=== PATIENT | male | born 1945 | race African-American/Black ===

== ENCOUNTER 2019-09-17 11:55 | Inpatient (IN) | payer OTHER, MEDICAID ==
[~2019-09-17] VITALS: Ht 165.1 cm; Wt 65.8 kg
[2019-09-17 14:26] LABS: BASOPHILS % 1.1 % (0.0-2.0); EOSINOPHILS % 1.4 % (0.0-5.0); HEMATOCRIT. 32.6 % (42.0-52.0); HEMOGLOBIN. 10.8 g/dL (14.0-18.0); LYMPHOCYTES % 18.9 % (20.0-50.0); MEAN CORPUSCULAR HEMOGLOBIN 29.4 pg (28.0-32.0); MEAN CORPUSCULAR VOLUME 88.7 fL (80.0-94.0); MONOCYTES % 12.2 % (2.0-8.0); NEUTROPHILS % 66.4 % (40.0-76.0); PLATELET 215 x1000/uL (130-400); RED BLOOD CELL COUNT 3.68 mill/uL (4.7-6.1); RED CELL DISTRIBUTION WIDTH 14.1 % (11.6-14.6)
[2019-09-17 14:34] LABS: CHLORIDE 104 mEq/L (98-107)
[2019-09-17] MEDS ORDERED: HYDROCODONE/ACETAMINOPHEN 5/325MG TABLET PO ONE (15:30)
[2019-09-17] MEDS ORDERED: NITROGLYCERIN 0.4MG TABLET SL SL ONE (18:15)
[2019-09-17] MEDS ORDERED: ACETAMINOPHEN 325MG TABLET PO PRN (18:15)
[2019-09-17] MEDS ORDERED: ONDANSETRON HCL 4MG/2ML INJ IV PRN (18:15)
[2019-09-17] MEDS ORDERED: MORPHINE SULFATE 2 MG/ML CPJ (NOT FOR IM USE) IV PRN (18:15)
[2019-09-17] MEDS ORDERED: NITROGLYCERIN 0.4MG TABLET SL SL PRN (19:45)
[2019-09-17 21:30] VITALS: BP 119/69
[2019-09-17] MEDS: HEPARIN 5000 UNITS/ML VIAL SUBCUT SCH (23:18)
[2019-09-18] VITALS: BP 127/74
[2019-09-18] MEDS ORDERED: TAMS-11 MT (00:01)
[2019-09-18] MEDS ORDERED: THIA50TA11 MT (00:01)
[2019-09-18] MEDS ORDERED: ALBU90AE INH (00:01)
[2019-09-18] MEDS ORDERED: AMLO10TA80 MT (00:01)
[2019-09-18] MEDS ORDERED: HYDR-4009 MT (00:01)
[2019-09-18] MEDS ORDERED: METO-396 MT (00:01)
[2019-09-18] MEDS ORDERED: FURO-151 MT (00:01)
[2019-09-18] MEDS ORDERED: GABA-531 MT (00:01)
[2019-09-18] MEDS ORDERED: ATOR40TA70 MT (00:01)
[2019-09-18] MEDS ORDERED: HYDR25TA MT (00:01)
[2019-09-18] MEDS ORDERED: DOXA4TAB2 MT (00:01)
[2019-09-18] MEDS ORDERED: FLUT1BLS INH (00:01)
[2019-09-18] MEDS ORDERED: ASPI-1497 MT (00:01)
[2019-09-18] MEDS ORDERED: FOLI0.4T2 MT (00:01)
[2019-09-18] MEDS: HYDROCODONE/ACETAMINOPHEN 10/325MG TABLET PO PRN ×3 (01:16→19:54)
[2019-09-18] MEDS: GABAPENTIN 300MG CAPSULE PO SCH ×4 (06:00→21:27)
[2019-09-18 08:15] VITALS: BP 105/52
[2019-09-18] MEDS ORDERED: METOPROLOL TARTRATE 25MG TABLET PO SCH (09:00)
[2019-09-18] MEDS: ASPIRIN 81MG EC TABLET PO SCH (09:16)
[2019-09-18] MEDS: THIAMINE HCL 100MG TABLET PO SCH (09:16)
[2019-09-18] MEDS: FUROSEMIDE 40MG TABLET PO SCH (09:17)
[2019-09-18] MEDS: TAMSULOSIN HCL 0.4MG SR CAPSULE PO SCH (09:17)
[2019-09-18] MEDS: FOLIC ACID 1MG TABLET PO SCH (09:17)
[2019-09-18] MEDS: AMLODIPINE 10MG TABLET PO SCH (09:17)
[2019-09-18] MEDS: HYDROCHLOROTHIAZIDE 25MG TABLET PO SCH (09:18)
[2019-09-18] MEDS: HEPARIN 5000 UNITS/ML VIAL SUBCUT SCH ×2 (09:19→21:19)
[2019-09-18 09:37] LABS: CHLORIDE 105 mEq/L (98-107)
[2019-09-18 10:10] LABS: BASOPHILS % 0.9 % (0.0-2.0); EOSINOPHILS % 3.1 % (0.0-5.0); HEMATOCRIT. 30.6 % (42.0-52.0); HEMOGLOBIN. 10.2 g/dL (14.0-18.0); LYMPHOCYTES % 23.9 % (20.0-50.0); MEAN CORPUSCULAR HEMOGLOBIN 29.3 pg (28.0-32.0); MEAN CORPUSCULAR VOLUME 88.3 fL (80.0-94.0); MONOCYTES % 14.4 % (2.0-8.0); NEUTROPHILS % 57.7 % (40.0-76.0); PLATELET 198 x1000/uL (130-400); RED BLOOD CELL COUNT 3.46 mill/uL (4.7-6.1); RED CELL DISTRIBUTION WIDTH 13.9 % (11.6-14.6)
[2019-09-18 10:15] LABS: HDL CHOLESTEROL 70 mg/dL (40-59); LDL CHOLESTEROL 50 mg/dL (5-100)
[2019-09-18] MEDS: FLUTICASONE/VILANTEROL 200-25 BLST.W.DEV ORI SCH (10:30)
[2019-09-18 12:26] VITALS: BP 108/66
[2019-09-18] MEDS ORDERED: POTASSIUM CHLORIDE 20MEQ/PACKET PO NR (13:30)
[2019-09-18 13:39] LABS: CREATINE KINASE 252 IU/L (39-308)
[2019-09-18] MEDS ORDERED: MAGNESIUM 2 G PREMIX 50 ML IV NR (14:30)
[2019-09-18 16:18] VITALS: BP 142/83
[2019-09-18 16:23] VITALS: BP 104/56
[2019-09-18 20:00] VITALS: BP 109/61
[2019-09-18] MEDS ORDERED: ATORVASTATIN CALCIUM 40MG TABLET PO SCH (21:00)
[2019-09-18] MEDS: DOXAZOSIN MESYLATE 4MG TABLET PO SCH (21:00)
[2019-09-18] MEDS: ATORVASTATIN CALCIUM 40MG TABLET PO SCH (21:18)
[2019-09-19] VITALS: BP 114/61
[2019-09-19] MEDS: HYDROCODONE/ACETAMINOPHEN 10/325MG TABLET PO PRN ×3 (02:27→18:31)
[2019-09-19 04:00] VITALS: BP 114/66
[2019-09-19] MEDS: GABAPENTIN 300MG CAPSULE PO SCH ×4 (05:34→22:00)
[2019-09-19 06:06] LABS: BASOPHILS % 1.2 % (0.0-2.0); EOSINOPHILS % 4.5 % (0.0-5.0); HEMATOCRIT. 34.3 % (42.0-52.0); HEMOGLOBIN. 11.3 g/dL (14.0-18.0); MEAN CORPUSCULAR HEMOGLOBIN 29.2 pg (28.0-32.0); MEAN CORPUSCULAR VOLUME 88.8 fL (80.0-94.0); MEAN PLATELET VOLUME 8.8 fl (7.4-10.4); MONOCYTES % 14.2 % (2.0-8.0); NEUTROPHILS % 51.1 % (40.0-76.0); PLATELET 207 x1000/uL (130-400); RED BLOOD CELL COUNT 3.87 mill/uL (4.7-6.1)
[2019-09-19 06:18] LABS: CHLORIDE 103 mEq/L (98-107)
[2019-09-19 08:00] VITALS: BP 122/65
[2019-09-19] MEDS: ASPIRIN 81MG EC TABLET PO SCH (09:06)
[2019-09-19] MEDS: HEPARIN 5000 UNITS/ML VIAL SUBCUT SCH ×2 (09:06→21:00)
[2019-09-19] MEDS: FUROSEMIDE 40MG TABLET PO SCH (09:07)
[2019-09-19] MEDS: AMLODIPINE 10MG TABLET PO SCH (09:07)
[2019-09-19] MEDS: TAMSULOSIN HCL 0.4MG SR CAPSULE PO SCH (09:07)
[2019-09-19] MEDS: THIAMINE HCL 100MG TABLET PO SCH (09:10)
[2019-09-19] MEDS: HYDROCHLOROTHIAZIDE 25MG TABLET PO SCH (09:10)
[2019-09-19] MEDS: FOLIC ACID 1MG TABLET PO SCH (09:10)
[2019-09-19] MEDS: MAGNESIUM OXIDE 400MG TABLET PO SCH ×2 (11:19→18:01)
[2019-09-19 12:00] VITALS: BP 129/63
[2019-09-19 16:00] VITALS: BP 108/59
[2019-09-19 20:00] VITALS: BP 118/77
[2019-09-19] MEDS: FLUTICASONE/VILANTEROL 200-25 BLST.W.DEV ORI SCH (21:00)
[2019-09-19] MEDS: DOXAZOSIN MESYLATE 4MG TABLET PO SCH (21:08)
[2019-09-19] MEDS: ATORVASTATIN CALCIUM 40MG TABLET PO SCH (21:08)
[2019-09-20] VITALS: BP 103/61
[2019-09-20] MEDS: HYDROCODONE/ACETAMINOPHEN 10/325MG TABLET PO PRN ×3 (02:04→17:57)
[2019-09-20 04:00] VITALS: BP 100/58
[2019-09-20] MEDS: GABAPENTIN 300MG CAPSULE PO SCH ×3 (05:44→22:13)
[2019-09-20 07:05] LABS: CLARITY URINE CLEAR (CLEAR); COLOR URINE YELLOW (YELLOW); KETONES URINE NEGATIVE (NEGATIVE); LEUKOCYTE ESTERASE URINE NEGATIVE (NEGATIVE); NITRITE URINE NEGATIVE (NEGATIVE); OCCULT BLOOD URINE NEGATIVE (NEGATIVE); PH URINE 6.5 (4.5-8.0); PROTEIN URINE NEGATIVE (NEGATIVE); SPECIFIC GRAVITY URINE 1.009 (1.005-1.030); UROBILINOGEN URINE 0.2 E.U./dL (0.2-1.0)
[2019-09-20 08:00] VITALS: BP 116/66
[2019-09-20] MEDS: TAMSULOSIN HCL 0.4MG SR CAPSULE PO SCH (08:39)
[2019-09-20] MEDS: FOLIC ACID 1MG TABLET PO SCH (08:39)
[2019-09-20] MEDS: AMLODIPINE 10MG TABLET PO SCH (08:39)
[2019-09-20] MEDS: FUROSEMIDE 40MG TABLET PO SCH (08:39)
[2019-09-20] MEDS: MAGNESIUM OXIDE 400MG TABLET PO SCH ×2 (08:40→17:56)
[2019-09-20] MEDS: THIAMINE HCL 100MG TABLET PO SCH (08:40)
[2019-09-20] MEDS: ASPIRIN 81MG EC TABLET PO SCH (08:40)
[2019-09-20] MEDS: HEPARIN 5000 UNITS/ML VIAL SUBCUT SCH ×2 (08:40→22:14)
[2019-09-20] MEDS: HYDROCHLOROTHIAZIDE 25MG TABLET PO SCH (08:55)
[2019-09-20 09:09] LABS: COMPLEMENT C3 109 mg/dL (82-167)
[2019-09-20 12:00] VITALS: BP 107/68
[2019-09-20] MEDS ORDERED: BISACODYL 10MG SUPP PR NR (12:45)
[2019-09-20] MEDS ORDERED: NA PHOS,M-B/NA PHOS,DI-BA ENEMA 118ML PR NR (12:45)
[2019-09-20] MEDS ORDERED: MAGNESIUM HYDROXIDE 400MG/5ML 30ML UDC PO NR (12:45)
[2019-09-20] MEDS: DOCUSATE SODIUM 250MG CAPSULE PO SCH (12:59)
[2019-09-20 13:06] LABS: ANTI-NUCLEAR ANTIBODIES DIRECT Negative (Negative)
[2019-09-20 16:00] VITALS: BP 115/70
[2019-09-20 20:00] VITALS: BP 108/69
[2019-09-20] MEDS: FLUTICASONE/VILANTEROL 200-25 BLST.W.DEV ORI SCH (22:08)
[2019-09-20] MEDS: DOXAZOSIN MESYLATE 4MG TABLET PO SCH (22:10)
[2019-09-20] MEDS: ATORVASTATIN CALCIUM 40MG TABLET PO SCH (22:11)
[2019-09-20] MEDS: SENNOSIDES/DOCUSATE SOD 8.6/50MG TABLET PO SCH (22:14)
[2019-09-21] VITALS: BP 120/59
[2019-09-21 04:00] VITALS: BP 122/61
[2019-09-21] MEDS: GABAPENTIN 300MG CAPSULE PO SCH ×3 (06:05→21:17)
[2019-09-21] MEDS: HYDROCODONE/ACETAMINOPHEN 10/325MG TABLET PO PRN (06:05)
[2019-09-21 07:19] LABS: BASOPHILS % 0.9 % (0.0-2.0); EOSINOPHILS % 3.5 % (0.0-5.0); HEMATOCRIT. 33.8 % (42.0-52.0); LYMPHOCYTES % 29.8 % (20.0-50.0); MEAN CORPUSCULAR HEMOGLOBIN 28.8 pg (28.0-32.0); MEAN CORPUSCULAR VOLUME 88.4 fL (80.0-94.0); MONOCYTES % 13.4 % (2.0-8.0); NEUTROPHILS % 52.4 % (40.0-76.0); PLATELET 202 x1000/uL (130-400); RED BLOOD CELL COUNT 3.83 mill/uL (4.7-6.1); RED CELL DISTRIBUTION WIDTH 13.6 % (11.6-14.6)
[2019-09-21 08:00] VITALS: BP 119/60
[2019-09-21] MEDS: THIAMINE HCL 100MG TABLET PO SCH (09:01)
[2019-09-21] MEDS: TAMSULOSIN HCL 0.4MG SR CAPSULE PO SCH (09:01)
[2019-09-21] MEDS: MAGNESIUM OXIDE 400MG TABLET PO SCH ×2 (09:01→18:03)
[2019-09-21] MEDS: HYDROCHLOROTHIAZIDE 25MG TABLET PO SCH (09:01)
[2019-09-21] MEDS: FOLIC ACID 1MG TABLET PO SCH (09:01)
[2019-09-21] MEDS: DOCUSATE SODIUM 250MG CAPSULE PO SCH (09:01)
[2019-09-21] MEDS: AMLODIPINE 10MG TABLET PO SCH (09:01)
[2019-09-21] MEDS: FUROSEMIDE 40MG TABLET PO SCH (09:01)
[2019-09-21] MEDS: HEPARIN 5000 UNITS/ML VIAL SUBCUT SCH ×2 (09:02→21:17)
[2019-09-21 12:00] VITALS: BP 106/62
[2019-09-21] MEDS: ASPIRIN 81MG EC TABLET PO SCH (13:54)
[2019-09-21 20:00] VITALS: BP 137/53
[2019-09-21] MEDS: ATORVASTATIN CALCIUM 40MG TABLET PO SCH (21:17)
[2019-09-21] MEDS: DOXAZOSIN MESYLATE 4MG TABLET PO SCH (21:17)
[2019-09-21] MEDS: SENNOSIDES/DOCUSATE SOD 8.6/50MG TABLET PO SCH (21:18)
[2019-09-21] MEDS: FLUTICASONE/VILANTEROL 200-25 BLST.W.DEV ORI SCH (21:19)
[2019-09-22] VITALS: BP 144/75
[2019-09-22] MEDS: HYDROCODONE/ACETAMINOPHEN 10/325MG TABLET PO PRN ×3 (00:38→21:33)
[2019-09-22 04:00] VITALS: BP 120/57
[2019-09-22] MEDS: GABAPENTIN 300MG CAPSULE PO SCH ×5 (05:06→21:44)
[2019-09-22 08:00] VITALS: BP 139/58
[2019-09-22] MEDS: MAGNESIUM OXIDE 400MG TABLET PO SCH ×2 (10:13→16:50)
[2019-09-22] MEDS: FUROSEMIDE 40MG TABLET PO SCH (10:13)
[2019-09-22] MEDS: HYDROCHLOROTHIAZIDE 25MG TABLET PO SCH (10:13)
[2019-09-22] MEDS: THIAMINE HCL 100MG TABLET PO SCH (10:13)
[2019-09-22] MEDS: FOLIC ACID 1MG TABLET PO SCH (10:13)
[2019-09-22] MEDS: DOCUSATE SODIUM 250MG CAPSULE PO SCH (10:13)
[2019-09-22] MEDS: HEPARIN 5000 UNITS/ML VIAL SUBCUT SCH ×2 (10:13→21:31)
[2019-09-22] MEDS: TAMSULOSIN HCL 0.4MG SR CAPSULE PO SCH (10:14)
[2019-09-22] MEDS: AMLODIPINE 10MG TABLET PO SCH (10:14)
[2019-09-22] MEDS: ASPIRIN 81MG EC TABLET PO SCH (10:19)
[2019-09-22 20:33] VITALS: BP 131/78
[2019-09-22] MEDS: FLUTICASONE/VILANTEROL 200-25 BLST.W.DEV ORI SCH (21:00)
[2019-09-22] MEDS: ATORVASTATIN CALCIUM 40MG TABLET PO SCH (21:27)
[2019-09-22] MEDS: SENNOSIDES/DOCUSATE SOD 8.6/50MG TABLET PO SCH (21:28)
[2019-09-22] MEDS: DOXAZOSIN MESYLATE 4MG TABLET PO SCH (21:28)
[2019-09-23 00:40] VITALS: BP 120/70
[2019-09-23] MEDS ORDERED: HYDROCODONE/ACETAMINOPHEN 10/325MG TABLET PO PRN (01:45)
[2019-09-23 04:20] VITALS: BP 114/56
[2019-09-23] MEDS: GABAPENTIN 300MG CAPSULE PO SCH ×3 (06:00→21:45)
[2019-09-23 07:01] LABS: HEMATOCRIT. 32.4 % (42.0-52.0); HEMOGLOBIN. 10.8 g/dL (14.0-18.0); MEAN CORPUSCULAR HEMOGLOBIN 29.5 pg (28.0-32.0); MEAN CORPUSCULAR VOLUME 88.6 fL (80.0-94.0); PLATELET 180 x1000/uL (130-400); RED BLOOD CELL COUNT 3.65 mill/uL (4.7-6.1); RED CELL DISTRIBUTION WIDTH 13.8 % (11.6-14.6)
[2019-09-23 08:06] VITALS: BP 124/63
[2019-09-23] MEDS: TAMSULOSIN HCL 0.4MG SR CAPSULE PO SCH (09:06)
[2019-09-23] MEDS: FOLIC ACID 1MG TABLET PO SCH (09:06)
[2019-09-23] MEDS: DOCUSATE SODIUM 250MG CAPSULE PO SCH (09:06)
[2019-09-23] MEDS: HYDROCHLOROTHIAZIDE 25MG TABLET PO SCH (09:06)
[2019-09-23] MEDS: AMLODIPINE 10MG TABLET PO SCH (09:06)
[2019-09-23] MEDS: THIAMINE HCL 100MG TABLET PO SCH (09:06)
[2019-09-23] MEDS: FUROSEMIDE 40MG TABLET PO SCH (09:06)
[2019-09-23] MEDS: MAGNESIUM OXIDE 400MG TABLET PO SCH ×2 (09:06→17:49)
[2019-09-23] MEDS: HEPARIN 5000 UNITS/ML VIAL SUBCUT SCH ×2 (09:07→21:44)
[2019-09-23] MEDS: ASPIRIN 81MG EC TABLET PO SCH (11:19)
[2019-09-23 11:56] VITALS: BP 119/53
[2019-09-23 15:11] LABS: PLATELET ESTIMATE NORMAL
[2019-09-23 15:59] VITALS: BP 100/56
[2019-09-23] MEDS: TRAMADOL 50MG TABLET PO PRN (19:01)
[2019-09-23 20:00] VITALS: BP 128/71
[2019-09-23] MEDS: FLUTICASONE/VILANTEROL 200-25 BLST.W.DEV ORI SCH (21:00)
[2019-09-23] MEDS: SENNOSIDES/DOCUSATE SOD 8.6/50MG TABLET PO SCH (21:44)
[2019-09-23] MEDS: ATORVASTATIN CALCIUM 40MG TABLET PO SCH (21:44)
[2019-09-23] MEDS: DOXAZOSIN MESYLATE 4MG TABLET PO SCH (21:44)
[2019-09-24] VITALS: BP 137/70
[2019-09-24] MEDS: TRAMADOL 50MG TABLET PO PRN ×3 (01:42→16:18)
[2019-09-24] MEDS: GABAPENTIN 300MG CAPSULE PO SCH ×2 (06:00→14:00)
[2019-09-24 06:59] LABS: HEMATOCRIT. 31.2 % (42.0-52.0); HEMOGLOBIN. 10.4 g/dL (14.0-18.0); MEAN CORPUSCULAR HEMOGLOBIN 29.5 pg (28.0-32.0); MEAN CORPUSCULAR VOLUME 88.4 fL (80.0-94.0); MEAN PLATELET VOLUME 8.8 fl (7.4-10.4); PLATELET 181 x1000/uL (130-400); RED BLOOD CELL COUNT 3.53 mill/uL (4.7-6.1); RED CELL DISTRIBUTION WIDTH 13.6 % (11.6-14.6)
[2019-09-24] MEDS: AMLODIPINE 10MG TABLET PO SCH (09:00)
[2019-09-24] MEDS: MAGNESIUM OXIDE 400MG TABLET PO SCH ×2 (09:30→17:22)
[2019-09-24] MEDS: DOCUSATE SODIUM 250MG CAPSULE PO SCH (09:30)
[2019-09-24] MEDS: FUROSEMIDE 40MG TABLET PO SCH (09:31)
[2019-09-24] MEDS: ASPIRIN 81MG EC TABLET PO SCH (09:31)
[2019-09-24] MEDS: FOLIC ACID 1MG TABLET PO SCH (09:31)
[2019-09-24] MEDS: HYDROCHLOROTHIAZIDE 25MG TABLET PO SCH (09:31)
[2019-09-24] MEDS: THIAMINE HCL 100MG TABLET PO SCH (09:31)
[2019-09-24] MEDS: TAMSULOSIN HCL 0.4MG SR CAPSULE PO SCH (09:32)
[2019-09-24] MEDS: HEPARIN 5000 UNITS/ML VIAL SUBCUT SCH (09:32)
[2019-09-24 12:00] VITALS: BP 120/58
[2019-09-24 13:20] LABS: PLATELET ESTIMATE NORMAL
[2019-09-24 15:54] VITALS: BP 120/58
[2019-09-24 16:00] VITALS: BP 116/64
[2019-09-24 16:18] VITALS: BP 120/58
[2019-09-25] MEDS ORDERED: AMLODIPINE 5MG TABLET PO SCH (09:00)
== END 2019-09-24 19:54 | DRG 683 ==
LOC: EDBEDREQ 12:26 → ER 12:39 → EDBEDREQ 18:11 → ENRESERV 19:53 → 6WST 21:16
PROVIDERS: ADMIT Family Medicine Adult Medicine; ATTEND Family Medicine Adult Medicine
DX: N17.9 Acute kidney failure, unspecified (principal); I13.0 Hypertensive heart and chronic kidney disease with heart failure and stage 1 through stage 4 chronic kidney disease, or unspecified chronic kidney disease; N18.9 Chronic kidney disease, unspecified; D63.8 Anemia in other chronic diseases classified elsewhere; I44.0 Atrioventricular block, first degree; I25.10 Atherosclerotic heart disease of native coronary artery without angina pectoris; E83.42 Hypomagnesemia; N40.0 Benign prostatic hyperplasia without lower urinary tract symptoms; K76.9 Liver disease, unspecified; I50.9 Heart failure, unspecified; L50.9 Urticaria, unspecified; Z79.51 Long term (current) use of inhaled steroids; I25.2 Old myocardial infarction; Z86.73 Personal history of transient ischemic attack (TIA), and cerebral infarction without residual deficits; Z59.0 Homelessness; Z79.899 Other long term (current) drug therapy; Z88.0 Allergy status to penicillin; Z79.82 Long term (current) use of aspirin; Z87.891 Personal history of nicotine dependence
CPT/HCPCS: 36415; 71045; 76770; 80048; 80053; 80061; 81003; 82550; 83036; 83735; 83880; 84443; 84484; 85025; 86038; 86160; 93005; 93306; 96365; 97162; 97166; 99285; J1644; J3475

== ENCOUNTER 2020-02-16 17:38 | Inpatient (IN) | payer OTHER, MEDICAID ==
[~2020-02-16] VITALS: Ht 177.8 cm; Wt 75.0 kg
[~2020-02-16 17:38] MED LIST: ALBU90AE INH; AMLO10TA80 MT; ASPI-1497 MT; ATOR40TA70 MT; DOXA4TAB2 MT; FLUT1BLS INH; FOLI0.4T2 MT; FURO-151 MT; GABA-531 MT; HYDR-4009 MT; HYDR25TA MT; TAMS-11 MT; THIA50TA11 MT
[2020-02-16] MEDS ORDERED: HALOPERIDOL LACTATE 5MG/ML VIAL IM NR (18:30)
[2020-02-16 18:58] LABS: HEMATOCRIT. 37.1 % (42.0-52.0); HEMOGLOBIN. 12.4 g/dL (14.0-18.0); MEAN CORPUSCULAR HEMOGLOBIN 28.9 pg (28.0-32.0); MEAN CORPUSCULAR VOLUME 86.7 fL (80.0-94.0); MEAN PLATELET VOLUME 8.9 fl (7.4-10.4); PLATELET 257 x1000/uL (130-400); RED BLOOD CELL COUNT 4.27 mill/uL (4.7-6.1); RED CELL DISTRIBUTION WIDTH 15.5 % (11.6-14.6)
[2020-02-16 19:03] LABS: CHLORIDE 93 mEq/L (98-107)
[2020-02-16 19:06] LABS: INR 0.9; PROTHROMBIN TIME 10.2 sec (9.6-11.0)
[2020-02-16 19:29] LABS: CLARITY URINE CLEAR (CLEAR); COLOR URINE YELLOW (YELLOW); KETONES URINE NEGATIVE (NEGATIVE); LEUKOCYTE ESTERASE URINE 1+ (NEGATIVE); NITRITE URINE NEGATIVE (NEGATIVE); OCCULT BLOOD URINE TRACE (NEGATIVE); PH URINE 6.5 (4.5-8.0); PROTEIN URINE 1+ (NEGATIVE); SPECIFIC GRAVITY URINE 1.014 (1.005-1.030); UROBILINOGEN URINE 0.2 E.U./dL (0.2-1.0)
[2020-02-16] MEDS ORDERED: AZTREONAM 2 GM in DEXT 5% WATER 100 ML IV STA (19:31)
[2020-02-16 19:48] LABS: PLATELET ESTIMATE NORMAL
[2020-02-16] MEDS ORDERED: HALOPERIDOL LACTATE 5MG/ML VIAL IM ONE (20:45)
[2020-02-16 23:22] VITALS: BP 126/68
[2020-02-16] MEDS ORDERED: ACETAMINOPHEN 650MG SUPP PR PRN (23:45)
[2020-02-16] MEDS ORDERED: ACETAMINOPHEN 650MG/20.3ML UDC GT PRN ×2 (23:45)
[2020-02-16] MEDS ORDERED: MAGNESIUM/ALUMINUM HYDROXIDE/SIMETHICONE 30ML UDC PO PRN (23:45)
[2020-02-16] MEDS ORDERED: CEFTRIAXONE 1 G PREMIX 50 ML IV SCH (23:45)
[2020-02-16] MEDS ORDERED: DIPHENHYDRAMINE 50MG/ML VIAL IV PRN (23:45)
[2020-02-16] MEDS ORDERED: NA PHOS,M-B/NA PHOS,DI-BA ENEMA 118ML PR PRN (23:45)
[2020-02-16] MEDS ORDERED: CLONIDINE 0.1MG TABLET PO PRN (23:45)
[2020-02-16] MEDS ORDERED: ONDANSETRON HCL 4MG/2ML INJ IV PRN (23:45)
[2020-02-17] VITALS: BP 108/62
[2020-02-17] MEDS: ACETAMINOPHEN 650MG SUPP PR PRN ×2 (00:27→06:15)
[2020-02-17] MEDS ORDERED: SODIUM CHLORIDE 0.9% 1,000 ML IV SCH (00:30)
[2020-02-17] MEDS: SODIUM CHLORIDE 0.9% INJ 3ML FLUSH IVF SCH ×3 (05:19→21:23)
[2020-02-17 06:09] VITALS: BP 149/68
[2020-02-17 07:04] LABS: HEMATOCRIT. 37.2 % (42.0-52.0); HEMOGLOBIN. 12.5 g/dL (14.0-18.0); MEAN CORPUSCULAR HEMOGLOBIN 29.1 pg (28.0-32.0); MEAN CORPUSCULAR VOLUME 86.7 fL (80.0-94.0); MEAN PLATELET VOLUME 8.5 fl (7.4-10.4); PLATELET 264 x1000/uL (130-400); RED BLOOD CELL COUNT 4.29 mill/uL (4.7-6.1); RED CELL DISTRIBUTION WIDTH 15.4 % (11.6-14.6)
[2020-02-17 07:13] LABS: CHLORIDE 101 mEq/L (98-107)
[2020-02-17 07:25] LABS: LDL CHOLESTEROL 62 mg/dL (5-100)
[2020-02-17 07:26] LABS: HDL CHOLESTEROL 45 mg/dL (40-59)
[2020-02-17 08:00] VITALS: BP 148/84
[2020-02-17] MEDS: ENOXAPARIN 30MG/0.3ML SYR SUBCUT SCH (08:32)
[2020-02-17] MEDS ORDERED: POTASSIUM CHLORIDE INJ 40 MEQ in DEXT 5% WATER 250 ML IV SCH ×2 (09:00→13:00)
[2020-02-17] MEDS ORDERED: LEVOFLOXACIN 500MG PREMIX 100 ML IV NR (09:00)
[2020-02-17 11:20] LABS: PLATELET ESTIMATE NORMAL
[2020-02-17 12:00] VITALS: BP 149/82
[2020-02-17] MEDS ORDERED: DEXTROSE 50% WATER 50ML SYRINGE IV PRN (13:30)
[2020-02-17] MEDS: AZITHROMYCIN 250 MG TABLET PO SCH (13:58)
[2020-02-17] MEDS: CARVEDILOL 6.25 MG TABLET PO SCH ×2 (13:58→21:00)
[2020-02-17 16:00] VITALS: BP 129/75
[2020-02-17 16:02] LABS: *AMPHETAMINES SCREEN URINE NEGATIVE (NEGATIVE); *BARBITURATES SCREEN URINE NEGATIVE (NEGATIVE); *BENZODIAZEPINES SCREEN URINE NEGATIVE (NEGATIVE); *COCAINE SCREEN URINE NEGATIVE (NEGATIVE); METHADONE URINE SCREEN NEGATIVE (NEGATIVE); OPIATES URINE SCREEN PRESUMTIVE POSITIVE (NEGATIVE)
[2020-02-17 16:03] LABS: CANNABINOID URINE SCREEN NEGATIVE (NEGATIVE); PHENCYCLIDINE URINE SCREEN NEGATIVE (NEGATIVE)
[2020-02-17] MEDS: BLOOD SUGAR DIAGNOSTIC STRIP TEST SCH ×2 (16:58→21:21)
[2020-02-17] MEDS: INSULIN LISPRO 100 UNITS/ML SUBCUT SCH ×2 (17:51→21:00)
[2020-02-17] MEDS ORDERED: VANCOMYCIN 1 G PREMIX 200 ML IV NR (18:00)
[2020-02-17 20:00] VITALS: BP 146/85
[2020-02-17] MEDS: ATORVASTATIN CALCIUM 40MG TABLET PO SCH (20:59)
[2020-02-18] VITALS: BP 114/61
[2020-02-18 04:00] VITALS: BP 122/77
[2020-02-18] MEDS: SODIUM CHLORIDE 0.9% INJ 3ML FLUSH IVF SCH ×3 (06:14→21:31)
[2020-02-18] MEDS: VANCOMYCIN 750 MG PREMIX 150 ML IV SCH (06:16)
[2020-02-18] MEDS: BLOOD SUGAR DIAGNOSTIC STRIP TEST SCH ×4 (07:40→20:31)
[2020-02-18 08:00] VITALS: BP 115/72
[2020-02-18] MEDS: INSULIN LISPRO 100 UNITS/ML SUBCUT SCH ×4 (08:10→20:31)
[2020-02-18] MEDS: ASPIRIN 81MG TABLET PO SCH (08:51)
[2020-02-18] MEDS: LEVOFLOXACIN 250MG PREMIX 50 ML IV SCH (08:51)
[2020-02-18] MEDS: ENOXAPARIN 30MG/0.3ML SYR SUBCUT SCH (08:51)
[2020-02-18] MEDS: AZITHROMYCIN 250 MG TABLET PO SCH (08:51)
[2020-02-18] MEDS: CARVEDILOL 6.25 MG TABLET PO SCH ×2 (08:51→21:32)
[2020-02-18 12:00] VITALS: BP_SYST 101; BP_DIAS 61; BP_DIAS 98
[2020-02-18 13:51] LABS: HEMATOCRIT. 37.2 % (42.0-52.0); HEMOGLOBIN. 12.2 g/dL (14.0-18.0); MEAN CORPUSCULAR HEMOGLOBIN 29.3 pg (28.0-32.0); MEAN CORPUSCULAR VOLUME 89.6 fL (80.0-94.0); MEAN PLATELET VOLUME 8.6 fl (7.4-10.4); PLATELET 268 x1000/uL (130-400); RED BLOOD CELL COUNT 4.16 mill/uL (4.7-6.1)
[2020-02-18 14:13] LABS: CHLORIDE 109 mEq/L (98-107)
[2020-02-18 14:20] LABS: PHOSPHORUS 1.6 mg/dL (2.5-4.9)
[2020-02-18] MEDS ORDERED: HALOPERIDOL LACTATE 5MG/ML VIAL IM PRN (14:30)
[2020-02-18 16:00] VITALS: BP 125/71
[2020-02-18 18:29] LABS: PLATELET ESTIMATE NORMAL
[2020-02-18 20:00] VITALS: BP 133/76
[2020-02-18] MEDS: ATORVASTATIN CALCIUM 40MG TABLET PO SCH (21:31)
[2020-02-18] MEDS: GABAPENTIN 300MG CAPSULE PO SCH (21:31)
[2020-02-18] MEDS: HYDROCODONE/ACETAMINOPHEN 10/325MG TABLET PO PRN (21:33)
[2020-02-18 22:14] LABS: COVID-19 PCR RNA DETECTED
[2020-02-18 22:15] LABS: COVID-19 PCR RNA DETECTED
[2020-02-19] VITALS (7 sets, daily range): BP systolic 100–118; BP diastolic 51–69
[2020-02-19] MEDS: VANCOMYCIN 750 MG PREMIX 150 ML IV SCH (05:54)
[2020-02-19] MEDS: SODIUM CHLORIDE 0.9% INJ 3ML FLUSH IVF SCH ×3 (05:54→21:05)
[2020-02-19] MEDS: GABAPENTIN 300MG CAPSULE PO SCH ×3 (05:54→21:05)
[2020-02-19] MEDS: BLOOD SUGAR DIAGNOSTIC STRIP TEST SCH ×4 (06:53→21:04)
[2020-02-19 07:40] LABS: BASOPHILS % 0.1 % (0.0-2.0); HEMATOCRIT. 37.5 % (42.0-52.0); HEMOGLOBIN. 12.3 g/dL (14.0-18.0); LYMPHOCYTES % 7.6 % (20.0-50.0); MEAN CORPUSCULAR HEMOGLOBIN 29.5 pg (28.0-32.0); MEAN CORPUSCULAR VOLUME 90.2 fL (80.0-94.0); MEAN PLATELET VOLUME 8.2 fl (7.4-10.4); MONOCYTES % 5.1 % (2.0-8.0); NEUTROPHILS % 87.2 % (40.0-76.0); PLATELET 245 x1000/uL (130-400); RED BLOOD CELL COUNT 4.16 mill/uL (4.7-6.1); RED CELL DISTRIBUTION WIDTH 15.9 % (11.6-14.6)
[2020-02-19] MEDS: INSULIN LISPRO 100 UNITS/ML SUBCUT SCH ×4 (08:10→21:00)
[2020-02-19 08:11] LABS: *CREATININE RANDOM URINE 60.2 mg/dL (Not Estab.); MICROALBUMIN RANDOM URINE 262.6 ug/mL (Not Estab.)
[2020-02-19 08:28] LABS: CHLORIDE 111 mEq/L (98-107)
[2020-02-19 08:35] LABS: PHOSPHORUS 2.2 mg/dL (2.5-4.9)
[2020-02-19] MEDS: ENOXAPARIN 30MG/0.3ML SYR SUBCUT SCH (08:55)
[2020-02-19] MEDS: AZITHROMYCIN 250 MG TABLET PO SCH (08:56)
[2020-02-19] MEDS: CARVEDILOL 6.25 MG TABLET PO SCH ×2 (08:56→21:04)
[2020-02-19] MEDS: HYDROCODONE/ACETAMINOPHEN 10/325MG TABLET PO PRN (08:56)
[2020-02-19] MEDS: LEVOFLOXACIN 250MG PREMIX 50 ML IV SCH (08:57)
[2020-02-19] MEDS: ASPIRIN 81MG TABLET PO SCH (08:59)
[2020-02-19] MEDS ORDERED: ENOXAPARIN 40MG/0.4ML SYR SUBCUT SCH (09:00)
[2020-02-19] MEDS: ATORVASTATIN CALCIUM 40MG TABLET PO SCH (21:03)
[2020-02-19] MEDS: ACETAMINOPHEN 325MG TABLET PO PRN (21:04)
[2020-02-20] VITALS: BP 93/59
[2020-02-20] MEDS: ACETAMINOPHEN 325MG TABLET PO PRN (01:00)
[2020-02-20 04:00] VITALS: BP 91/54
[2020-02-20] MEDS: SODIUM CHLORIDE 0.9% INJ 3ML FLUSH IVF SCH ×3 (06:09→22:12)
[2020-02-20] MEDS: GABAPENTIN 300MG CAPSULE PO SCH ×3 (06:09→22:13)
[2020-02-20] MEDS: VANCOMYCIN 750 MG PREMIX 150 ML IV SCH (06:09)
[2020-02-20] MEDS: BLOOD SUGAR DIAGNOSTIC STRIP TEST SCH ×4 (07:40→21:00)
[2020-02-20 08:00] VITALS: BP 121/61
[2020-02-20] MEDS: INSULIN LISPRO 100 UNITS/ML SUBCUT SCH ×4 (08:10→21:00)
[2020-02-20] MEDS: ASPIRIN 81MG TABLET PO SCH (09:25)
[2020-02-20] MEDS: CARVEDILOL 6.25 MG TABLET PO SCH ×2 (09:25→22:10)
[2020-02-20] MEDS: AZITHROMYCIN 250 MG TABLET PO SCH (09:25)
[2020-02-20] MEDS: LEVOFLOXACIN 250MG PREMIX 50 ML IV SCH (09:25)
[2020-02-20] MEDS: ENOXAPARIN 30MG/0.3ML SYR SUBCUT SCH (09:29)
[2020-02-20 11:25] LABS: HEMOGLOBIN. 11.3 g/dL (14.0-18.0); MEAN CORPUSCULAR HEMOGLOBIN 29.4 pg (28.0-32.0); MEAN CORPUSCULAR VOLUME 88.5 fL (80.0-94.0); MEAN PLATELET VOLUME 8.1 fl (7.4-10.4); PLATELET 306 x1000/uL (130-400); RED BLOOD CELL COUNT 3.85 mill/uL (4.7-6.1); RED CELL DISTRIBUTION WIDTH 16.1 % (11.6-14.6)
[2020-02-20 11:50] LABS: PHOSPHORUS 1.8 mg/dL (2.5-4.9)
[2020-02-20 12:00] VITALS: BP 125/55
[2020-02-20 12:50] LABS: PLATELET ESTIMATE NORMAL
[2020-02-20 16:00] VITALS: BP 122/60
[2020-02-20 20:00] VITALS: BP 111/78
[2020-02-20] MEDS: GUAIFENESIN 600MG ER TABLET PO SCH (22:10)
[2020-02-20] MEDS: ATORVASTATIN CALCIUM 40MG TABLET PO SCH (22:13)
[2020-02-21] VITALS: BP 91/48
[2020-02-21 04:00] VITALS: BP 104/50
[2020-02-21] MEDS: VANCOMYCIN 750 MG PREMIX 150 ML IV SCH (05:59)
[2020-02-21] MEDS: GABAPENTIN 300MG CAPSULE PO SCH ×3 (05:59→21:27)
[2020-02-21] MEDS: SODIUM CHLORIDE 0.9% INJ 3ML FLUSH IVF SCH ×3 (05:59→21:21)
[2020-02-21] MEDS: BLOOD SUGAR DIAGNOSTIC STRIP TEST SCH ×4 (06:33→21:21)
[2020-02-21 06:34] LABS: HEMATOCRIT. 37.8 % (42.0-52.0); HEMOGLOBIN. 12.2 g/dL (14.0-18.0); MEAN CORPUSCULAR HEMOGLOBIN 29.2 pg (28.0-32.0); MEAN CORPUSCULAR VOLUME 90.4 fL (80.0-94.0); PLATELET 269 x1000/uL (130-400); RED BLOOD CELL COUNT 4.18 mill/uL (4.7-6.1); RED CELL DISTRIBUTION WIDTH 16.4 % (11.6-14.6)
[2020-02-21 06:35] LABS: CHLORIDE 108 mEq/L (98-107)
[2020-02-21 06:41] LABS: PHOSPHORUS 2.3 mg/dL (2.5-4.9)
[2020-02-21 08:00] VITALS: BP 184/97
[2020-02-21] MEDS: INSULIN LISPRO 100 UNITS/ML SUBCUT SCH ×4 (08:10→21:00)
[2020-02-21 08:14] LABS: PLATELET ESTIMATE NORMAL
[2020-02-21 09:55] LABS: BG BASE EXCESS -1.3 mmol/L (-2.0-2.0); BG CARBOXYHEMOGLOBIN 0.3 % (0.5-1.5); BG DEOXYHEMOGLOBIN 18.1 % (0.0-5.0); BG FRACTION INSPIRED OXYGEN 40; BG METHEMOGLOBIN 0.3 % (0.0-1.5); BG OXYGEN SATURATION 81.8 % (92.0-98.5); BG OXYHEMOGLOBIN 81.3 % (94.0-97.0); BG PCO2 32.1 mmHg (35.0-45.0); BG PH 7.454 (7.350-7.450); BG PO2 42.1 mmHg (75.0-100.0); BG SAMPLE SITE RIGHT BRACHIAL; BG TOTAL HEMOGLOBIN 11.1 g/dL (12.0-18.0); BG VENT MODE NASAL CANNULA
[2020-02-21] MEDS ORDERED: FUROSEMIDE 40MG/4ML VIAL IVP SCH (10:00)
[2020-02-21] MEDS: LEVOFLOXACIN 250MG PREMIX 50 ML IV SCH (10:01)
[2020-02-21] MEDS: GUAIFENESIN 600MG ER TABLET PO SCH ×2 (10:01→21:27)
[2020-02-21] MEDS: AZITHROMYCIN 250 MG TABLET PO SCH (10:01)
[2020-02-21] MEDS: ASPIRIN 81MG TABLET PO SCH (10:01)
[2020-02-21] MEDS: CARVEDILOL 6.25 MG TABLET PO SCH ×2 (10:02→21:00)
[2020-02-21] MEDS: ENOXAPARIN 30MG/0.3ML SYR SUBCUT SCH (10:03)
[2020-02-21] MEDS: METHYLPREDNISOLONE SOD SUCC 40 MG/ML VIAL IV SCH ×2 (10:07→21:27)
[2020-02-21 10:54] LABS: HEMATOCRIT 34.4 % (42.0-52.0); HEMOGLOBIN 11.1 g/dL (14.0-18.0); MEAN CORPUSCULAR HEMOGLOBIN 28.7 pg (28.0-32.0); MEAN CORPUSCULAR VOLUME 89.2 fL (80.0-94.0); PLATELET 347 x1000/uL (130-400); RED BLOOD CELL COUNT 3.86 mill/uL (4.7-6.1)
[2020-02-21 11:04] LABS: CHLORIDE 107 mEq/L (98-107)
[2020-02-21 11:13] LABS: CREATINE KINASE 792 IU/L (39-308)
[2020-02-21 11:16] LABS: CREATINE KINASE MB FRACTION 2.6 ng/mL (0.5-3.6)
[2020-02-21 11:19] LABS: BG BASE EXCESS 0.8 mmol/L (-2.0-2.0); BG CARBOXYHEMOGLOBIN 0.3 % (0.5-1.5); BG DEOXYHEMOGLOBIN 2.2 % (0.0-5.0); BG FRACTION INSPIRED OXYGEN 99.9; BG HCO3 ACT 24.5 mmol/L (22.0-26.0); BG METHEMOGLOBIN 0.1 % (0.0-1.5); BG OXYGEN SATURATION 97.8 % (92.0-98.5); BG OXYHEMOGLOBIN 97.4 % (94.0-97.0); BG PCO2 35.7 mmHg (35.0-45.0); BG PH 7.455 (7.350-7.450); BG PO2 105.8 mmHg (75.0-100.0); BG SAMPLE SITE RIGHT BRACHIAL; BG TOTAL HEMOGLOBIN 10.5 g/dL (12.0-18.0); BG VENT MODE MASK - NRB
[2020-02-21 12:00] VITALS: BP 95/46
[2020-02-21] MEDS ORDERED: REMDESIVIR 200 MG in SODIUM CHLORIDE 0.9% 250 ML IV SCH (12:00)
[2020-02-21] MEDS: ALBUTEROL 6.7GM HFA INHALER ORI SCH ×2 (13:34→17:16)
[2020-02-21 16:00] VITALS: BP 91/51
[2020-02-21 20:20] VITALS: BP 92/67
[2020-02-21] MEDS: ATORVASTATIN CALCIUM 40MG TABLET PO SCH (21:27)
[2020-02-22] VITALS: BP 102/57
[2020-02-22] MEDS: ALBUTEROL 6.7GM HFA INHALER ORI SCH ×4 (00:28→17:12)
[2020-02-22 04:00] VITALS: BP 138/66
[2020-02-22 04:14] LABS: CHLORIDE 106 mEq/L (98-107)
[2020-02-22 04:18] LABS: HEMOGLOBIN. 10.9 g/dL (14.0-18.0); MEAN CORPUSCULAR HEMOGLOBIN 29.6 pg (28.0-32.0); MEAN CORPUSCULAR VOLUME 86.8 fL (80.0-94.0); PLATELET 360 x1000/uL (130-400); RED BLOOD CELL COUNT 3.69 mill/uL (4.7-6.1); RED CELL DISTRIBUTION WIDTH 16.2 % (11.6-14.6)
[2020-02-22] MEDS: SODIUM CHLORIDE 0.9% INJ 3ML FLUSH IVF SCH ×3 (05:34→21:41)
[2020-02-22] MEDS: GABAPENTIN 300MG CAPSULE PO SCH ×3 (05:34→21:40)
[2020-02-22] MEDS: VANCOMYCIN 750 MG PREMIX 150 ML IV SCH (06:14)
[2020-02-22] MEDS: BLOOD SUGAR DIAGNOSTIC STRIP TEST SCH ×4 (06:14→21:00)
[2020-02-22] MEDS: INSULIN LISPRO 100 UNITS/ML SUBCUT SCH ×4 (07:18→21:00)
[2020-02-22] MEDS: METHYLPREDNISOLONE SOD SUCC 40 MG/ML VIAL IV SCH ×2 (08:10→21:38)
[2020-02-22] MEDS: ASPIRIN 81MG TABLET PO SCH (08:10)
[2020-02-22] MEDS: LEVOFLOXACIN 250MG PREMIX 50 ML IV SCH (08:11)
[2020-02-22] MEDS: GUAIFENESIN 600MG ER TABLET PO SCH ×2 (08:11→21:40)
[2020-02-22] MEDS: ENOXAPARIN 30MG/0.3ML SYR SUBCUT SCH (08:12)
[2020-02-22] MEDS: CARVEDILOL 6.25 MG TABLET PO SCH ×2 (08:28→21:41)
[2020-02-22 08:30] VITALS: BP 130/76
[2020-02-22] MEDS ORDERED: FUROSEMIDE 40MG/4ML VIAL IVP SCH (09:00)
[2020-02-22] MEDS: REMDESIVIR 100 MG in SODIUM CHLORIDE 0.9% 250 ML IV SCH ×2 (12:00→13:27)
[2020-02-22 12:30] VITALS: BP 106/63
[2020-02-22 13:39] LABS: PLATELET ESTIMATE NORMAL
[2020-02-22 16:00] VITALS: BP 97/62
[2020-02-22 20:00] VITALS: BP 111/59
[2020-02-22] MEDS: ATORVASTATIN CALCIUM 40MG TABLET PO SCH (21:40)
[2020-02-23] VITALS: BP 109/58
[2020-02-23] MEDS: DOCUSATE SODIUM 100MG CAPSULE PO PRN (00:17)
[2020-02-23] MEDS: ALBUTEROL 6.7GM HFA INHALER ORI SCH ×5 (00:18→23:04)
[2020-02-23 04:00] VITALS: BP 106/55
[2020-02-23] MEDS: SODIUM CHLORIDE 0.9% INJ 3ML FLUSH IVF SCH ×3 (05:57→22:21)
[2020-02-23] MEDS: GABAPENTIN 300MG CAPSULE PO SCH ×3 (05:57→22:16)
[2020-02-23 07:38] LABS: HEMATOCRIT. 30.9 % (42.0-52.0); HEMOGLOBIN. 10.2 g/dL (14.0-18.0); MEAN CORPUSCULAR HEMOGLOBIN 28.4 pg (28.0-32.0); MEAN CORPUSCULAR VOLUME 86.1 fL (80.0-94.0); MEAN PLATELET VOLUME 8.3 fl (7.4-10.4); PLATELET 368 x1000/uL (130-400); RED BLOOD CELL COUNT 3.59 mill/uL (4.7-6.1); RED CELL DISTRIBUTION WIDTH 15.8 % (11.6-14.6)
[2020-02-23] MEDS: BLOOD SUGAR DIAGNOSTIC STRIP TEST SCH ×4 (07:41→21:00)
[2020-02-23] MEDS: INSULIN LISPRO 100 UNITS/ML SUBCUT SCH ×4 (07:47→22:48)
[2020-02-23 07:50] LABS: CHLORIDE 103 mEq/L (98-107)
[2020-02-23 07:59] LABS: PHOSPHORUS 1.7 mg/dL (2.5-4.9)
[2020-02-23 08:00] VITALS: BP 118/66
[2020-02-23] MEDS: SODIUM CHLORIDE 0.9% 1,000 ML IV SCH ×2 (10:03→22:20)
[2020-02-23] MEDS: LEVOFLOXACIN 250MG PREMIX 50 ML IV SCH (10:03)
[2020-02-23] MEDS: ENOXAPARIN 30MG/0.3ML SYR SUBCUT SCH (10:03)
[2020-02-23] MEDS: ASPIRIN 81MG TABLET PO SCH (10:04)
[2020-02-23] MEDS: METHYLPREDNISOLONE SOD SUCC 40 MG/ML VIAL IV SCH ×2 (10:04→22:16)
[2020-02-23] MEDS: GUAIFENESIN 600MG ER TABLET PO SCH ×2 (10:04→22:16)
[2020-02-23] MEDS: CARVEDILOL 6.25 MG TABLET PO SCH ×2 (10:05→22:19)
[2020-02-23] MEDS ORDERED: POTASSIUM PHOS,M-BASIC-D-BASIC 20 MMOL in DEXT 5% WATER 243.3333 ML IV NR (11:00)
[2020-02-23] MEDS: VANCOMYCIN 500 MG PREMIX 100 ML IV SCH (11:45)
[2020-02-23 12:00] VITALS: BP 112/60
[2020-02-23] MEDS: REMDESIVIR 100 MG in SODIUM CHLORIDE 0.9% 250 ML IV SCH (13:01)
[2020-02-23 14:20] LABS: PLATELET ESTIMATE NORMAL
[2020-02-23 16:00] VITALS: BP 119/77
[2020-02-23 20:00] VITALS: BP 122/62
[2020-02-23] MEDS: ATORVASTATIN CALCIUM 40MG TABLET PO SCH (22:16)
[2020-02-24] VITALS: BP 132/76
[2020-02-24 04:00] VITALS: BP 127/66
[2020-02-24] MEDS: ALBUTEROL 6.7GM HFA INHALER ORI SCH ×4 (05:46→23:37)
[2020-02-24] MEDS: SODIUM CHLORIDE 0.9% INJ 3ML FLUSH IVF SCH ×3 (05:46→21:04)
[2020-02-24] MEDS: GABAPENTIN 300MG CAPSULE PO SCH ×3 (05:56→21:03)
[2020-02-24] MEDS: BLOOD SUGAR DIAGNOSTIC STRIP TEST SCH ×4 (07:48→21:24)
[2020-02-24] MEDS: INSULIN LISPRO 100 UNITS/ML SUBCUT SCH ×4 (07:48→21:41)
[2020-02-24 07:53] LABS: HEMATOCRIT. 31.9 % (42.0-52.0); HEMOGLOBIN. 10.6 g/dL (14.0-18.0); MEAN CORPUSCULAR HEMOGLOBIN 28.7 pg (28.0-32.0); MEAN CORPUSCULAR VOLUME 86.7 fL (80.0-94.0); MEAN PLATELET VOLUME 8.3 fl (7.4-10.4); PLATELET 368 x1000/uL (130-400); RED BLOOD CELL COUNT 3.68 mill/uL (4.7-6.1)
[2020-02-24 08:00] VITALS: BP 116/83
[2020-02-24 08:47] LABS: CHLORIDE 105 mEq/L (98-107)
[2020-02-24 08:53] LABS: PHOSPHORUS 3.7 mg/dL (2.5-4.9)
[2020-02-24 09:07] LABS: PLATELET ESTIMATE NORMAL
[2020-02-24] MEDS: METHYLPREDNISOLONE SOD SUCC 40 MG/ML VIAL IV SCH ×2 (09:24→21:04)
[2020-02-24] MEDS: ASPIRIN 81MG TABLET PO SCH (09:24)
[2020-02-24] MEDS: GUAIFENESIN 600MG ER TABLET PO SCH ×2 (09:24→21:03)
[2020-02-24] MEDS: ENOXAPARIN 30MG/0.3ML SYR SUBCUT SCH (09:25)
[2020-02-24] MEDS: LEVOFLOXACIN 250MG PREMIX 50 ML IV SCH (09:25)
[2020-02-24] MEDS: CARVEDILOL 6.25 MG TABLET PO SCH ×2 (09:45→21:04)
[2020-02-24] MEDS: VANCOMYCIN 500 MG PREMIX 100 ML IV SCH (11:10)
[2020-02-24 12:00] VITALS: BP 104/56
[2020-02-24] MEDS: REMDESIVIR 100 MG in SODIUM CHLORIDE 0.9% 250 ML IV SCH (13:12)
[2020-02-24] MEDS: HYDROCODONE/ACETAMINOPHEN 5/325MG TABLET PO PRN (14:59)
[2020-02-24 16:00] VITALS: BP 115/60
[2020-02-24 20:00] VITALS: BP 119/62
[2020-02-24] MEDS: ATORVASTATIN CALCIUM 40MG TABLET PO SCH (21:04)
[2020-02-25] VITALS: BP 141/67
[2020-02-25 04:00] VITALS: BP 126/70
[2020-02-25 05:15] LABS: CHLORIDE 105 mEq/L (98-107)
[2020-02-25] MEDS: GABAPENTIN 300MG CAPSULE PO SCH ×3 (06:40→21:03)
[2020-02-25] MEDS: ALBUTEROL 6.7GM HFA INHALER ORI SCH ×4 (06:41→23:52)
[2020-02-25] MEDS: SODIUM CHLORIDE 0.9% 1,000 ML IV SCH ×2 (06:41→19:35)
[2020-02-25] MEDS: SODIUM CHLORIDE 0.9% INJ 3ML FLUSH IVF SCH ×3 (06:41→21:03)
[2020-02-25] MEDS: DOCUSATE SODIUM 100MG CAPSULE PO PRN (06:43)
[2020-02-25] MEDS: BLOOD SUGAR DIAGNOSTIC STRIP TEST SCH ×4 (07:32→20:50)
[2020-02-25 08:00] VITALS: BP 119/68
[2020-02-25] MEDS: INSULIN LISPRO 100 UNITS/ML SUBCUT SCH ×4 (08:10→21:04)
[2020-02-25] MEDS: ASPIRIN 81MG TABLET PO SCH (08:30)
[2020-02-25] MEDS: CARVEDILOL 6.25 MG TABLET PO SCH ×2 (08:30→20:50)
[2020-02-25] MEDS: GUAIFENESIN 600MG ER TABLET PO SCH ×2 (08:30→21:03)
[2020-02-25] MEDS: METHYLPREDNISOLONE SOD SUCC 40 MG/ML VIAL IV SCH (08:30)
[2020-02-25] MEDS: ENOXAPARIN 30MG/0.3ML SYR SUBCUT SCH (08:30)
[2020-02-25] MEDS: LEVOFLOXACIN 250MG PREMIX 50 ML IV SCH (08:32)
[2020-02-25 12:00] VITALS: BP 137/66
[2020-02-25] MEDS: VANCOMYCIN 500 MG PREMIX 100 ML IV SCH (12:18)
[2020-02-25] MEDS: REMDESIVIR 100 MG in SODIUM CHLORIDE 0.9% 250 ML IV SCH (12:18)
[2020-02-25 16:00] VITALS: BP 136/63
[2020-02-25 20:31] VITALS: BP 95/63
[2020-02-25] MEDS: ATORVASTATIN CALCIUM 40MG TABLET PO SCH (21:03)
[2020-02-26] VITALS (7 sets, daily range): BP systolic 103–133; BP diastolic 55–78
[2020-02-26] MEDS: GABAPENTIN 300MG CAPSULE PO SCH ×3 (05:04→21:08)
[2020-02-26] MEDS: ALBUTEROL 6.7GM HFA INHALER ORI SCH ×3 (05:04→17:11)
[2020-02-26] MEDS: SODIUM CHLORIDE 0.9% INJ 3ML FLUSH IVF SCH ×2 (05:04→14:12)
[2020-02-26] MEDS: BLOOD SUGAR DIAGNOSTIC STRIP TEST SCH ×4 (06:48→20:14)
[2020-02-26] MEDS: INSULIN LISPRO 100 UNITS/ML SUBCUT SCH ×4 (08:10→21:20)
[2020-02-26 09:00] LABS: HEMOGLOBIN. 11.9 g/dL (14.0-18.0); MEAN CORPUSCULAR HEMOGLOBIN 28.8 pg (28.0-32.0); MEAN CORPUSCULAR VOLUME 87.1 fL (80.0-94.0); MEAN PLATELET VOLUME 8.6 fl (7.4-10.4); PLATELET 371 x1000/uL (130-400); RED BLOOD CELL COUNT 4.13 mill/uL (4.7-6.1); RED CELL DISTRIBUTION WIDTH 15.8 % (11.6-14.6)
[2020-02-26] MEDS: ASPIRIN 81MG TABLET PO SCH (09:04)
[2020-02-26] MEDS: METHYLPREDNISOLONE SOD SUCC 40 MG/ML VIAL IV SCH (09:04)
[2020-02-26] MEDS: GUAIFENESIN 600MG ER TABLET PO SCH ×2 (09:04→21:08)
[2020-02-26] MEDS: LEVOFLOXACIN 250MG PREMIX 50 ML IV SCH (09:04)
[2020-02-26] MEDS: CARVEDILOL 6.25 MG TABLET PO SCH ×2 (09:05→21:08)
[2020-02-26] MEDS: ACETAMINOPHEN 325MG TABLET PO PRN (09:05)
[2020-02-26] MEDS: ENOXAPARIN 40MG/0.4ML SYR SUBCUT SCH (09:06)
[2020-02-26 09:24] LABS: CHLORIDE 107 mEq/L (98-107)
[2020-02-26] MEDS: SODIUM CHLORIDE 0.9% 1,000 ML IV SCH (12:32)
[2020-02-26] MEDS ORDERED: LIDOCAINE HCL 1% 20ML VIAL (Pyxis) INJ ONE (13:35)
[2020-02-26 13:41] LABS: PLATELET ESTIMATE NORMAL
[2020-02-26] MEDS ORDERED: VANCOMYCIN 1250MG in DEXTROSE 5% WATER 250ML IV SCH (18:00)
[2020-02-26] MEDS: ATORVASTATIN CALCIUM 40MG TABLET PO SCH (21:08)
[2020-02-27 04:00] VITALS: BP 124/69
[2020-02-27] MEDS: SODIUM CHLORIDE 0.9% INJ 3ML FLUSH IVF SCH ×3 (05:11→21:56)
[2020-02-27] MEDS: ALBUTEROL 6.7GM HFA INHALER ORI SCH ×3 (05:11→18:54)
[2020-02-27] MEDS: GABAPENTIN 300MG CAPSULE PO SCH ×3 (05:12→21:55)
[2020-02-27] MEDS: BLOOD SUGAR DIAGNOSTIC STRIP TEST SCH ×4 (07:40→21:00)
[2020-02-27 08:00] VITALS: BP 131/69
[2020-02-27] MEDS: INSULIN LISPRO 100 UNITS/ML SUBCUT SCH ×4 (08:10→21:00)
[2020-02-27] MEDS: LEVOFLOXACIN 250MG PREMIX 50 ML IV SCH (08:59)
[2020-02-27] MEDS: METHYLPREDNISOLONE SOD SUCC 40 MG/ML VIAL IV SCH (08:59)
[2020-02-27] MEDS: CARVEDILOL 6.25 MG TABLET PO SCH ×2 (08:59→21:56)
[2020-02-27] MEDS: ASPIRIN 81MG TABLET PO SCH (08:59)
[2020-02-27] MEDS: GUAIFENESIN 600MG ER TABLET PO SCH ×2 (08:59→21:55)
[2020-02-27] MEDS: ENOXAPARIN 40MG/0.4ML SYR SUBCUT SCH (09:00)
[2020-02-27 09:42] LABS: HEMATOCRIT. 32.3 % (42.0-52.0); HEMOGLOBIN. 10.6 g/dL (14.0-18.0); MEAN CORPUSCULAR HEMOGLOBIN 28.7 pg (28.0-32.0); MEAN CORPUSCULAR VOLUME 87.6 fL (80.0-94.0); MEAN PLATELET VOLUME 8.5 fl (7.4-10.4); PLATELET 314 x1000/uL (130-400); RED BLOOD CELL COUNT 3.69 mill/uL (4.7-6.1); RED CELL DISTRIBUTION WIDTH 16.5 % (11.6-14.6)
[2020-02-27 09:57] LABS: CHLORIDE 108 mEq/L (98-107)
[2020-02-27 10:08] LABS: PHOSPHORUS 2.2 mg/dL (2.5-4.9)
[2020-02-27 12:00] VITALS: BP 122/60
[2020-02-27] MEDS ORDERED: SODIUM PHOS,M-BASIC-D-BASIC 20 MM in DEXT 5% WATER 243.3333 ML IV NR (12:30)
[2020-02-27 13:12] LABS: PLATELET ESTIMATE NORMAL
[2020-02-27] MEDS: ACETAMINOPHEN 325MG TABLET PO PRN ×2 (13:32→21:55)
[2020-02-27 16:04] VITALS: BP 117/62
[2020-02-27 20:00] VITALS: BP 120/58
[2020-02-27] MEDS: ATORVASTATIN CALCIUM 40MG TABLET PO SCH (21:55)
[2020-02-28] VITALS: BP 119/79
[2020-02-28 04:00] VITALS: BP 121/63
[2020-02-28] MEDS: BLOOD SUGAR DIAGNOSTIC STRIP TEST SCH ×4 (05:53→21:46)
[2020-02-28] MEDS: GABAPENTIN 300MG CAPSULE PO SCH ×3 (06:01→21:45)
[2020-02-28] MEDS: SODIUM CHLORIDE 0.9% INJ 3ML FLUSH IVF SCH ×3 (06:02→21:46)
[2020-02-28 06:04] LABS: HEMATOCRIT. 28.7 % (42.0-52.0); HEMOGLOBIN. 9.4 g/dL (14.0-18.0); MEAN CORPUSCULAR HEMOGLOBIN 28.8 pg (28.0-32.0); MEAN CORPUSCULAR VOLUME 87.4 fL (80.0-94.0); MEAN PLATELET VOLUME 8.4 fl (7.4-10.4); PLATELET 303 x1000/uL (130-400); RED BLOOD CELL COUNT 3.28 mill/uL (4.7-6.1); RED CELL DISTRIBUTION WIDTH 16.7 % (11.6-14.6)
[2020-02-28] MEDS: INSULIN LISPRO 100 UNITS/ML SUBCUT SCH ×4 (06:06→21:00)
[2020-02-28 06:30] LABS: CHLORIDE 108 mEq/L (98-107)
[2020-02-28 06:37] LABS: PHOSPHORUS 3.4 mg/dL (2.5-4.9)
[2020-02-28 08:00] VITALS: BP 111/61
[2020-02-28] MEDS: GUAIFENESIN 600MG ER TABLET PO SCH ×2 (09:00→21:44)
[2020-02-28] MEDS: CARVEDILOL 6.25 MG TABLET PO SCH ×2 (09:00→21:45)
[2020-02-28] MEDS: ASPIRIN 81MG TABLET PO SCH (09:00)
[2020-02-28] MEDS: ENOXAPARIN 40MG/0.4ML SYR SUBCUT SCH (09:00)
[2020-02-28] MEDS: METHYLPREDNISOLONE SOD SUCC 40 MG/ML VIAL IV SCH (09:47)
[2020-02-28 10:38] LABS: PLATELET ESTIMATE NORMAL
[2020-02-28 12:00] VITALS: BP 116/68
[2020-02-28] MEDS: ALBUTEROL 6.7GM HFA INHALER ORI SCH ×3 (12:44→23:49)
[2020-02-28 16:00] VITALS: BP 112/68
[2020-02-28 20:00] VITALS: BP 129/63
[2020-02-28] MEDS: ATORVASTATIN CALCIUM 40MG TABLET PO SCH (21:44)
[2020-02-29] VITALS: BP 125/60
[2020-02-29 04:00] VITALS: BP 130/80
[2020-02-29] MEDS: SODIUM CHLORIDE 0.9% INJ 3ML FLUSH IVF SCH ×3 (06:16→20:39)
[2020-02-29] MEDS: GABAPENTIN 300MG CAPSULE PO SCH ×3 (06:16→20:39)
[2020-02-29] MEDS: ALBUTEROL 6.7GM HFA INHALER ORI SCH ×3 (06:16→18:00)
[2020-02-29] MEDS: INSULIN LISPRO 100 UNITS/ML SUBCUT SCH (07:28)
[2020-02-29] MEDS: BLOOD SUGAR DIAGNOSTIC STRIP TEST SCH (07:28)
[2020-02-29 08:00] VITALS: BP 138/71
[2020-02-29 08:46] LABS: HEMOGLOBIN. 10.4 g/dL (14.0-18.0); MEAN CORPUSCULAR HEMOGLOBIN 29.2 pg (28.0-32.0); MEAN CORPUSCULAR VOLUME 86.9 fL (80.0-94.0); MEAN PLATELET VOLUME 8.5 fl (7.4-10.4); PLATELET 342 x1000/uL (130-400); RED BLOOD CELL COUNT 3.57 mill/uL (4.7-6.1); RED CELL DISTRIBUTION WIDTH 16.6 % (11.6-14.6)
[2020-02-29] MEDS: ENOXAPARIN 40MG/0.4ML SYR SUBCUT SCH (08:58)
[2020-02-29] MEDS: GUAIFENESIN 600MG ER TABLET PO SCH ×2 (08:58→20:39)
[2020-02-29] MEDS: ASPIRIN 81MG TABLET PO SCH (08:58)
[2020-02-29] MEDS: CARVEDILOL 6.25 MG TABLET PO SCH ×2 (08:58→20:39)
[2020-02-29 09:01] LABS: CHLORIDE 109 mEq/L (98-107)
[2020-02-29] MEDS: HYDROCODONE/ACETAMINOPHEN 5/325MG TABLET PO PRN (09:10)
[2020-02-29 09:11] LABS: PHOSPHORUS 2.6 mg/dL (2.5-4.9)
[2020-02-29 12:00] VITALS: BP 116/74
[2020-02-29 14:45] LABS: PLATELET ESTIMATE NORMAL
[2020-02-29 16:00] VITALS: BP 97/70
[2020-02-29] MEDS ORDERED: HYDROCODONE/ACETAMINOPHEN 5/325MG TABLET PO PRN (16:15)
[2020-02-29] MEDS ORDERED: ALBU6.7H9 ORI (17:28)
[2020-02-29] MEDS ORDERED: ASPI-1160 PO (17:28)
[2020-02-29] MEDS ORDERED: COR6 PO (17:28)
[2020-02-29] MEDS ORDERED: GABA-531 PO (17:28)
[2020-02-29] MEDS ORDERED: LIP40 PO (17:28)
[2020-02-29 18:34] VITALS: BP 97/70
[2020-02-29] MEDS: ATORVASTATIN CALCIUM 40MG TABLET PO SCH (20:39)
== END 2020-02-29 21:44 | DRG 871 ==
LOC: ER 17:38 → 7WST 20:27 → EDBEDREQ 20:47 → EDBEDREQTM 21:24 → ENRESERV 22:30
PROVIDERS: ADMIT Family Medicine; ATTEND Family Medicine
PROC: B54MZZA Ultrasonography of Right Upper Extremity Veins, Guidance (ICD-10-PCS; principal; 2020-02-26)
PROC: 05HY33Z Insertion of Infusion Device into Upper Vein, Percutaneous Approach (ICD-10-PCS; 2020-02-26)
PROC: 30233K1 Transfusion of Nonautologous Frozen Plasma into Peripheral Vein, Percutaneous Approach (ICD-10-PCS; 2020-02-26)
DX: A41.89 Other specified sepsis (principal); U07.1 COVID-19; J96.01 Acute respiratory failure with hypoxia; I21.4 Non-ST elevation (NSTEMI) myocardial infarction; J12.89 Other viral pneumonia; E44.1 Mild protein-calorie malnutrition; E87.1 Hypo-osmolality and hyponatremia; N17.9 Acute kidney failure, unspecified; F23 Brief psychotic disorder; G93.40 Encephalopathy, unspecified; N39.0 Urinary tract infection, site not specified; I47.1 Supraventricular tachycardia; A85.8 Other specified viral encephalitis; E11.22 Type 2 diabetes mellitus with diabetic chronic kidney disease; Z66 Do not resuscitate; E83.39 Other disorders of phosphorus metabolism; L29.9 Pruritus, unspecified; D63.8 Anemia in other chronic diseases classified elsewhere; E78.5 Hyperlipidemia, unspecified; F03.90 Unspecified dementia, unspecified severity, without behavioral disturbance, psychotic disturbance, mood disturbance, and anxiety; I12.9 Hypertensive chronic kidney disease with stage 1 through stage 4 chronic kidney disease, or unspecified chronic kidney disease; M06.9 Rheumatoid arthritis, unspecified; I25.10 Atherosclerotic heart disease of native coronary artery without angina pectoris; I44.0 Atrioventricular block, first degree; N18.9 Chronic kidney disease, unspecified; E87.6 Hypokalemia; Z78.1 Physical restraint status; Z86.73 Personal history of transient ischemic attack (TIA), and cerebral infarction without residual deficits; Z59.0 Homelessness; Z87.891 Personal history of nicotine dependence; Z88.0 Allergy status to penicillin; Z79.899 Other long term (current) drug therapy; Z68.23 Body mass index [BMI] 23.0-23.9, adult
CPT/HCPCS: 36415; 36600; 71045; 76937; 80048; 80053; 80061; 80202; 80305; 81003; 82043; 82375; 82550; 82553; 82570; 82575; 82728; 82805; 82962; 83036; 83605; 83615; 83735; 83880; 83935; 84100; 84145; 84156; 84443; 84484; 85025; 85027; 86140; 86850; 86900; 86920; 86927; 87804; 93005; 93306; 96365; 99285; C1725; J1200; J1630; J1650; J1815; J1940; J1956; J2920; J3370; J3480; J3490; J7030; J7050; J7060; P9017; Q9957; U0003-CS